=== PATIENT | male | born 1995 | race Caucasian/White ===

== ENCOUNTER 2016-12-09 13:33 | Emergency (ER) | payer SELFPAY ==
[~2016-12-09] VITALS: Ht 172.7 cm; Wt 147.0 kg
[2016-12-09 14:00] VITALS: BP 146/85
--- NOTE | 2016-12-09 14:20 | PHYS DOC ---
Past Medical History Past Medical History: No Pertinent History Past Surgical History: Other Additional Past Surgical Histo: HERNIA Additional Information: SMOKES 1 CIGARETTE SOME DAYS Alcohol Use: Sober Additional Information: PATIENT STATES, "HAS NOT DRANK IN 5 MONTHS." Drug Use: None Social History Narrative: CLEAN 1 YEAR Adult General Chief Complaint Chief Complaint: diarrhea HPI HPI Patient is a 21 year old male who brought himself to the emergency department with the complaint of diarrhea. Patient states he has had diarrhea about 20 or 25 times since 3 AM. He's also had some crampy abdominal pain. Mild nausea but no vomiting. The last time he had diarrhea there was a little blood in it. He has been taking a new antidepressant for about 1 month, Viibryd, he gets samples from his psychiatrist, and he has actually had diarrhea just about every day since he started the new medication, but it has not been this bad. He did say he ate a very greasy meal last evening. The new medication is helping his depression and he does not want to stop it. He doesn't have an appointment with his psychiatrist until the end of November. He feels like he might be dehydrated. The people where he is staying are concerned that this could be a "allergic reaction" and wanted him to get checked out. The patient does not have a primary care doctor at this time. Review of Systems Review of Systems Constitutional: Denies fever or chills [] GI: as in history of present illness Integument: Denies hives or other skin rash Allergies Allergies Allergies Coded Allergies Type Severity Reaction Last Updated Verified No Known Drug Allergies 12/09/16 No Physical Exam Physical Exam Constitutional: Well developed, well nourished, no acute distress, non-toxic appearance. Alert, ambulatory, mentating normally, no acute distress. HENT: Normocephalic, atraumatic, bilateral external ears normal, nose normal. [ ] Eyes: conjunctiva normal, no discharge. [] Neck: Normal range of motion, no stridor. [] Cardiovascular:Heart rate regular rhythm, no murmur nontoxic and cardiac Lungs & Thorax: Bilateral breath sounds clear to auscultation [] Abdomen: Obese, nondistended, Bowel sounds normal, soft, no tenderness, no masses, no pulsatile masses. Abdomen exam is entirely benign. Skin: Warm, dry, no erythema, no rash. [] Extremities: No tenderness, no cyanosis, no clubbing, ROM intact, no edema. [] Neurologic: Alert and oriented X 3, normal motor function, normal sensory function, no focal deficits noted. [] Current Patient Data Vital Signs Vital Signs Date Time Temp Pulse Resp B/P (MAP) Pulse Ox O2 Delivery O2 Flow Rate FiO2 12/09/16 13:33 98.2 82 20 163/105 (124) 95 Room Air 98.2 EKG EKG [] Radiology/Procedures Radiology/Procedures [] Course & Med Decision Making Course & Med Decision Making Pertinent Labs and Imaging studies reviewed. (See chart for details) 21-year-old man presents with multiple episodes of diarrhea after recently starting a new antidepressant. I looked this up, and Viibryd appears to cause diarrhea in more than 15% of people who started, but it does seem to improve after people of been on it for a while. I discussed this with the patient. We talked about dietary changes he might make such as cutting out fats in his diet and following" brat diet" for a few days, avoiding dairy except for yogurt with active cultures. He may try Imodium to see if it helps. Drink plenty of fluids. He is able to drink in fact drinking some ice water out of a cup that he brought with him right now. See discharge instructions. [] Dragon Disclaimer Dragon Disclaimer This electronic medical record was generated, in whole or in part, using a voice recognition dictation system. Departure Departure Impression: Primary Impression: Diarrhea Additional Impression: Medication side effect Disposition: HOME, SELF-CARE Condition: STABLE Patient Instructions: Diarrhea, Fwks-by-Yjop Additional Instructions: As we discussed, diarrhea is a common side effect of Viibryd, but usually goes away or improves after you have been on the medication for a few weeks. Be sure you are drinking plenty of fluids to replace the fluids that you are losing. You may take qvei-[id number] Imodium as directed and see if it helps. Sometimes, some foods make it more likely for you to have diarrhea. Avoid any dairy products except for yogurt with active cultures. Also avoid any foods that are greasy or high-fiber. Call the prescribing psychiatrist on Sunday to see if they have any other advice about dealing with the diarrhea. Problem Qualifiers GARY MONZON MD December 09, 2016 14:20
== END 2016-12-09 14:35 | disposition home or self-care (01) ==
LOC: ER 14:35
DX: K52.1 Toxic gastroenteritis and colitis (principal); T43.205A Adverse effect of unspecified antidepressants, initial encounter; E66.9 Obesity, unspecified; F17.210 Nicotine dependence, cigarettes, uncomplicated; Z68.42 Body mass index [BMI] 45.0-49.9, adult; Y92.89 Other specified places as the place of occurrence of the external cause
CPT/HCPCS: 99283